=== PATIENT | male | born 1960 | race Caucasian/White ===

== ENCOUNTER 2022-04-16 09:59 | Outpatient (CLI) | payer BC, SELFPAY ==
--- NOTE | ~2022-04-16 | XR_ITS ---
EXAMINATION: XR foot LT min 3V DATE: 04/16/2022 10:46 INDICATION: Left foot pain 6 months post injury TECHNIQUE: Dorsoplantar, oblique and lateral views of the left foot were obtained. COMPARISON: None. FINDINGS: Alignment is normal. No fracture. There is subtle flattening of the head of the second metatarsal con sistent with chronic osteonecrosis (Freiberg's infraction). Mild osteoarthritis at the calcaneocuboid , first metatarsophalangeal and a few tarsometatarsal and interphalangeal joints. Small Achilles and plantar calcaneal spurs. Soft tissues are unremarkable. IMPRESSION: 1. Likely chronic osteonecrosis (Freiberg's infraction) at the head of the second metatarsal. 2. Chronic degenerative changes including mild polyarticular osteoarthritis and small Achilles and pl sushma calcaneal spurs. Reviewed, dictated and finalized at location B. IMPRESSION: 1. Likely chronic osteonecrosis (Freiberg's infraction) at the head of the seco nd metatarsal. 2. Chronic degenerative changes including mild polyarticular osteoarthritis and small Achilles and plantar calcaneal spurs.
== END 2022-04-16 10:00 | disposition home or self-care (01) ==
LOC: CHSIMG 10:13
PROVIDERS: PCP Internal Medicine; Visit Provider Internal Medicine
DX: M79.672 Pain in left foot (principal)
CPT/HCPCS: 73630

== ENCOUNTER → 2022-04-18 10:50 | Outpatient (CLI) | payer BC, SELFPAY ==
--- NOTE | ~2022-04-18 | MR_ITS ---
EXAMINATION: MR foot LT wo con DATE: 04/18/2022 11:53 INDICATION: Left foot pain TECHNIQUE: Magnetic resonance imaging (MRI) of the left fore/mid foot was performed without intraveno us contrast. Sequences included sagittal T1-weighted FSE, sagittal fluid sensitive FSE STIR, coronal PD-weighted FS FSE, coronal T1-weighted FSE, coronal fluid sensitive FSE STIR, axial PD-weighted FS F SE, axial fluid sensitive FSE STIR and axial PD-weighted FSE. COMPARISON: Left foot radiographs dated 04/16/2022 FINDINGS: Bone alignment is normal. No fracture. There is subtle flattening along the dorsal side of the articu lar cortex of the head of the second metacarpal with normal underlying marrow signal likely sequela o f chronic osteonecrosis. Mild polyarticular osteoarthritis at multiple joints in the mid and forefoot . Small foci of likely degenerative mild subarticular edema along the distal articular surface of the navicula and at the plantar distal articular surface of the medial cuneiform. Minimal joint effusion at the first metatarsophalangeal joint. Small ganglion cysts measuring 15 x 8 x 10 mm lateral to the cuboid which appears to arise from the calcaneocuboid articulation and measuring 9 x 6 x 6 mm dorsal to the mid cuneiform which appears to arise from either the second tarsometatarsal or intercuneiform articulations. The Lisfranc ligament complex as well as the collateral ligament complex at the metat arsophalangeal and interphalangeal joints are normal. The visualized portions of the flexor and exten sor tendons are normal. Mild fatty atrophy and feathery muscular edema throughout the intrinsic muscu lature of the foot. IMPRESSION: 1. Mild polyarticular osteoarthritis in the mid and forefoot. 2. Chronic osteonecrosis (Freiberg's infraction) at the head of the second metatarsal with mild fausto ening of the dorsal articular cortex. 3. Minimal effusion at the first metatarsophalangeal joint. Reviewed, dictated and finalized at location B. IMPRESSION: 1. Mild polyarticular osteoarthritis in the mid and forefoot. 2. Chronic osteonecrosis (Freiberg's infraction) at the head of the second meta tarsal with mild flattening of the dorsal articular cortex. 3. Minimal effusion at the first metatarsophalangeal joint.
== END ==
PROVIDERS: PCP Internal Medicine; Visit Provider Internal Medicine
DX: M79.672 Pain in left foot (principal); M19.072 Primary osteoarthritis, left ankle and foot; M87.875 Other osteonecrosis, left foot; M25.475 Effusion, left foot
CPT/HCPCS: 73718